=== PATIENT | female | born 1965 | race Caucasian/White ===

== ENCOUNTER 2017-06-16 09:53 | Day surgery (SDC) | payer OTHER ==
[~2017-06-16] VITALS: Ht 157.5 cm; Wt 71.9 kg
[2017-06-16] MEDS ORDERED: METOPROLOL PO (10:38)
[2017-06-16 10:42] VITALS: Ht 157.5 cm; Wt 71.9 kg
[2017-06-16 10:49] VITALS: BP 149/88; PULSE 56; RESP 16
[2017-06-16] MEDS ORDERED: LIDOCAINE 4% SOLUTION 50 ML BTL ONE (10:56)
--- NOTE | 2017-06-16 11:56 | OPPN ---
Date/Time of Note Date/Time of Note DATE: 06/16/17 TIME: 11:51 Proc Note GI Procedure Date 06/16/17 Indication: diagnostic Pre-procedure Diagnosis occult gi bleeding r/o pud neoplasm Post-procedure Diagnosis erosive gastritis irreg zej 2.2cm polyp on a stalk at 35 cm snared diverticulosis hemorrhoids Procedure Performed: Endoscopy, Colonoscopy Surgeon see signature line Insurance Policy Issue Clerk none Anesthesia Type: moderate sedation Tourniquet Time none EBL none Transfusion required none Biopsy 1: gastric bx colon polyp Grafts/Implants none Tubes/Drains none Complication(s) none Disposition: home Procedure Description egd colonoscopy done with mod sedation erosive gastritis colon polyp 2.2 cm at 35 cm snared diverticulosis DANIELE MCGEE MD Jun 16, 2017 11:56
[2017-06-16] MEDS ORDERED: FENTAnyl 50 MCG/ML VIAL ONE (11:59)
[2017-06-16] MEDS ORDERED: MIDAZOLAM 1 MG/ML 2 ML INJ ONE ×2 (12:00)
--- NOTE | 2017-06-17 07:23 | GILP ---
DATE OF PROCEDURE: PROCEDURE: Esophagogastroduodenoscopy. PREOPERATIVE DIAGNOSIS: Patient presenting with history of occult gastrointestinal bleeding, rule o ut bleeding ulcer disease, esophagitis, etc. POSTOPERATIVE DIAGNOSES: 1. Irregular GE junction. 2. Nodularity of the mid body of the stomach. Biopsy was done to rule out Helicobacter pylori infe ction to rule out MALToma. DESCRIPTION OF PROCEDURE: After informed written consent was obtained, the patient was asked to lie on the left lateral side, 3 mg Versed and 50 mcg of fentanyl was given as intravenous anesthesia. When the patient became somnolent, the Olympus video upper endoscope was introduced into the orophar ynx, then into the esophagus. The GE junction was found to be irregular but no inflammatory changes noted. Scope at this time was advanced into the stomach. Nodularity of the mid body noted in a lo calized area. Multiple biopsies were obtained to rule out MALToma. A few areas of erythema noted i n the antrum and the fundus. Biopsy was done from the antrum, the lesser curvature of the fundus to rule out H. pylori infection. Scope at this time was advanced into the duodenum. Entire duodenum appeared normal. Scope at this time was withdrawn. No additional abnormalities detected and the pr ocedure was terminated. PLAN: Recommend proton pump inhibitor therapy. Dictated By: DANIELE GREWAL/DENISE Conf#: [id number] DID#: [id number]
--- NOTE | 2017-06-17 07:31 | GILP ---
DATE OF PROCEDURE: PROCEDURE: Colonoscopy and polypectomy. PREOPERATIVE DIAGNOSIS: Patient presenting with history of occult gastrointestinal bleeding, rule o ut colorectal neoplasm. POSTOPERATIVE DIAGNOSES: 1. At least a 2.2 cm polyp located at 35 cm from the anus. Polypectomy was performed by using the hot snare. 2. Tattooing was performed. 3. Diverticulosis. 4. External hemorrhoids. 5. Internal hemorrhoids. DESCRIPTION OF PROCEDURE: After the informed written consent was obtained, the patient was asked to lie on the left lateral side. Patient was given intravenous anesthesia which included 4 mg Versed and 75 mcg of fentanyl as intravenous anesthesia. When the patient became somnolent, the Olympus video colonoscope was introduced into the rectum and scope was advanced all the way to the cecum. A 2.2 cm polypoid lobulated polyp noted on a stalk at 35 cm from the anus. Polypectomy was performed by using the hot snare. At this time, the polyp was retrieved and sent for histopathology. By using the SPOT tattooing was performed in this area for possible resection if needed in the future. Diverticulosis noted all along the colon, but no bleedi ng, no diverticulitis, not a severe degree of diverticulosis. Scope was withdrawn. Retroflexion was performed. Minimal internal hemorrhoids were noted and when the scope was withdrawn, minimal external hemorrhoids were noted and the procedure was terminated. PLAN: Recommend wait for the pathology report. Dictated By: DANIELE GREWAL/DENISE Conf#: [id number] DID#: [id number]
== END 2017-06-16 15:28 | disposition home or self-care (01) ==
LOC: GIL 09:53
PROVIDERS: ATTEND Internal Medicine Gastroenterology
DX: R19.5 Other fecal abnormalities (principal); K29.70 Gastritis, unspecified, without bleeding; K25.9 Gastric ulcer, unspecified as acute or chronic, without hemorrhage or perforation; K57.90 Diverticulosis of intestine, part unspecified, without perforation or abscess without bleeding; K64.4 Residual hemorrhoidal skin tags; K64.8 Other hemorrhoids; D12.6 Benign neoplasm of colon, unspecified; I10 Essential (primary) hypertension; K31.89 Other diseases of stomach and duodenum
CPT/HCPCS: 43239; 45385; 88305; 88312; J2250; J3010; Z7610

== ENCOUNTER 2017-06-25 05:24 | Day surgery (SDC) | payer OTHER ==
[2017-06-24 10:16] VITALS: Ht 154.9 cm; Wt 70.4 kg
[2017-06-25] VITALS (10 sets, daily range): BP systolic 117–149; BP diastolic 71–86; PULSE 56–74; RESP 13–19
[~2017-06-25] VITALS: Ht 154.9 cm; Wt 70.4 kg
[~2017-06-25 05:24] MED LIST: METOPROLOL PO
[2017-06-25] MEDS ORDERED: ASPI-664 PO (06:23)
[2017-06-25] MEDS ORDERED: METO-335 PO (06:23)
[2017-06-25] MEDS ORDERED: CEFAZOLIN 1 GM/50 ML (PMX) 50 ML IVPB ONE (06:30)
[2017-06-25] MEDS ORDERED: BUPIVACAINE 0.5% (SDV) 30 ML INJ ONE ×2 (06:55→08:52)
[2017-06-25] MEDS ORDERED: POLYMYXIN/BACITRACIN 1L IRRIG ONE (06:55)
--- NOTE | 2017-06-25 07:46 | HPN ---
Date/Time of Note Date/Time of Note DATE: 06/25/17 TIME: 07:46 Interval H&P Admission Note Pt. seen H&P reviewed: No system changes HERVE SU DPM Jun 25, 2017 07:46
[2017-06-25] MEDS ORDERED: PROPOFOL 20 ML ONE (07:49)
[2017-06-25] MEDS ORDERED: MIDAZOLAM 1 MG/ML 2 ML INJ ONE (07:49)
[2017-06-25] MEDS ORDERED: FENTAnyl 50 MCG/ML VIAL ONE (07:49)
[2017-06-25] MEDS ORDERED: LIDOCAINE 2% (MDV) 20 ML INJ ONE (07:51)
[2017-06-25] MEDS ORDERED: CEFAZOLIN 1 GM INJ ONE (08:09)
[2017-06-25] MEDS ORDERED: ONDANSETRON 4 MG INJ IV PRN (09:00)
[2017-06-25] MEDS ORDERED: MIDAZOLAM 1 MG/ML 2 ML INJ IV PRN (09:00)
[2017-06-25] MEDS ORDERED: DIPHENHYDRAMINE 50 MG INJ IV PRN (09:00)
[2017-06-25] MEDS ORDERED: OXYCODONE/ACETAMINOPHEN (5/325) TAB PO PRN ×2 (09:00)
[2017-06-25] MEDS ORDERED: FENTAnyl 50 MCG/ML VIAL IV PRN ×3 (09:00)
[2017-06-25] MEDS ORDERED: LABETALOL HCL 20MG INJ IV PRN (09:00)
[2017-06-25] MEDS ORDERED: hydrALAzine 20 MG INJ IV PRN (09:00)
[2017-06-25] MEDS ORDERED: MEPERIDINE 25 MG INJ IV PRN (09:00)
[2017-06-25] MEDS ORDERED: METOCLOPRAMIDE 10 MG INJ IV PRN (09:00)
[2017-06-25] MEDS ORDERED: EPHEDrine SULFATE 50 MG/5 ML SYG IV PRN (09:00)
--- NOTE | 2017-06-25 17:05 | RADRPT ---
PROCEDURE: XR Left Foot. CLINICAL INDICATION: Left foot pain. Postop. TECHNIQUE: Three views. Frontal, lateral, and oblique. COMPARISON: None. FINDINGS: There has been osteotomy of the first metatarsal and a cannulated screw is noted at this site. There is a pin in the second toe, a pin in the third toe, and a pin in the fourth toe. Gas is present in the soft tissues related to the recent surgery. There is no fracture or dislocation. The articular surfaces are otherwise intact. There is no lytic or blastic lesion. IMPRESSION: 1. Postoperative changes of the left foot. 2. No other abnormality. RPTAT: QQ .Austen Adames MD, MD Date Time Electronically viewed and signed by .Austen Adames MD, on 06/25/2017 17:05 .R/
--- NOTE | 2017-06-27 02:00 | OPR ---
Date/Time of Note Date/Time of Note DATE: 06/25/17 TIME: 09:43 Operative Report Procedure Date: Jun 25, 2017 Preoperative Diagnosis Left foot painful bunion Left second painful hammertoe Left third painful hammertoe Left fourth painful hammertoe Postoperative Diagnosis Left foot painful bunion Left second painful hammertoe Left third painful hammertoe Left fourth painful hammertoe Operation/Procedure Performed Surgical correction of left foot bunion deformity Surgical correction of left second hammertoe deformity Surgical correction of left third hammertoe deformity Surgical correction of left fourth hammertoe deformity Surgeon see signature line 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 Patient was evaluated and was found to have painful bunion deformity and painful hammertoes 2, 3 and 4 on the left foot. Patient has failed the following treatments: Shoe gear modification, activity modification, NSAIDs, pain medication and orthotics. Patient seeks surgical management. Recommended procedure: Surgical correction of left foot bunion deformity with internal and external fixation, surgical correction of left second hammertoe deformity with internal and external fixation, surgical correction of left third hammertoe deformity with internal fixation and or external fixation, surgical correction of fourth hammertoe deformity with internal fixation and/or external fixation. Risks and complications of this type of surgery was discussed with patient in great detail. Risks and complications discussed included, but are not limited to , postoperative infection, postoperative pain, hardware failure, malunion, nonunion, delayed union, failure of surgery to correct the problem, need for additional surgical procedures, deep venous thrombosis, limb loss and loss of life. Patient understands the discussion and agrees to the procedure. An informed consent was signed, obtained and placed in the chart. No guarantees or warrantees was given or implied as to the outcome of the procedure either in verbal or written form. Procedure Description Patient was seen in the preoperative area. Proposed surgery was discussed with patient in great detail. Risks and complications were discussed in great detail. Opportunity was given to patient to ask questions and all questions were answered. The patient was then taken to the operating room and was placed on the operating table in supine position. Timeout was called by the circulating nurse. Patient was placed under general anesthesia by the anesthesiologist. A tourniquet was applied to the left ankle. The left foot was scrubbed, prepped and draped in the usual aseptic manner. An Esmarch bandage was utilized to exsanguinate the left foot and the pneumatic ankle tourniquet was inflated to 250 mmHg pressure. Procedure #1: Left foot bunionectomy Attention was directed to the first metatarsophalangeal joint of the left foot. A 6 cm linear incision was made over the dorsal medial aspect of the first metatarsophalangeal joint medial to the extensor hallucis longus tendon. This incision was deepened using sharp and blunt dissection with care being taken to identify and protect vital neurovascular structures. Bleeders were cauterized as necessary. Dissection continued through the subcutaneous layer to the joint capsule using sharp and blunt dissection. The extensor hallucis longus tendon was identified and protected. A linear capsulotomy was performed and the joint capsule was dissected off of the head of the first metatarsal and base of the proximal phalanx exposing the joint. Dorsal and medial bony prominence was noted. A power saw was used to cut the dorsal and medial bony prominence. Chevron type osteotomy was made at the neck of the first metatarsal. The capital fragment was translated laterally to the desired position. A guidewire was used for temporary fixation and a 14 mm 3.0 cannulated headless screw was inserted for fixation. The excess medial shelf of bone was cut using a power saw. The K wire was removed and the toe was examined. 40 of dorsiflexion and 50 of plantarflexion was found. All rough edges were then smoothed using a power rasp. The wound was flushed with copious amounts of sterile normal saline. The joint capsule was reapproximated using 3-0 Vicryl suture. The subcutaneous layer was closed using 4-0 Vicryl suture. Skin was closed using 5- 0 Monocryl in subcuticular stitch pattern. Steri-Strips were applied. Procedure #2: Left second hammertoe correction Attention was then directed to the left second toe. The dorsal 2 cm linear incision was made using a #15 blade. Dissection was deepened to the extensor tendon using sharp and blunt dissection with care being taken to identify and protect vital neurovascular structures. The extensor tendon was transected at the level of the proximal interphalangeal joint and the proximal interphalangeal joint was exposed. Next, a power saw was used to cut the head of the proximal phalanx. A rongeur was used to denude the cartilage of the base of the middle phalanx. Copious amounts of sterile normal saline was used to irrigate the wound. Next, 0.062 K wire was used for fixation. The wire was bent cut and capped. A Tasia test showed stability of the second metatarsophalangeal joint. Proper loading was done to see if the toe becomes rectus and it does. Next, the extensor tendon was reapproximated using 4-0 Vicryl suture. Subcutaneous layer was closed using 4-0 Vicryl suture and skin was closed using 5-0 Monocryl in subcuticular stitch pattern. Steri-Strips were applied. Procedure #3: Left third hammertoe correction Same exact procedure was done on the left third toe as was done in procedure #2. Procedure #4: Left fourth hammertoe correction Same exact procedure was done on the left fourth toe as was done in procedure # 2. Postoperative injection of 0.5% Marcaine plain was given about 10 cc. Sterile dressing was applied to the left foot. The pneumatic ankle tourniquet was deflated at this time and prompt hyperemic response was noted to digits of the left foot. The patient will be transferred to the recovery room with vital signs stable and vascular status intact. Patient will be discharged home after postoperative monitoring. Partial weightbearing allowed with postop shoe and crutches. Postop orders were written. Patient is to follow-up in 1 week in my office. HERVE SU DPM Jun 25, 2017 09:54
== END 2017-06-25 11:55 | disposition home or self-care (01) ==
LOC: SDS 05:24
PROVIDERS: ATTEND Podiatrist Foot & Ankle Surgery
DX: M21.612 Bunion of left foot (principal); M20.42 Other hammer toe(s) (acquired), left foot; I10 Essential (primary) hypertension
CPT/HCPCS: 28285; 28296; 73630; 84703; 88304; 88311; J0690; J2250; J3010; Z7512; Z7610